=== PATIENT | female | born 1965 | race Caucasian/White ===

== ENCOUNTER 2024-09-07 21:38 | Emergency (ER) | payer BC, OTHER ==
--- NOTE | 2024-09-07 21:54 | RAD REPORT ---
EXAM: CT Ct Stroke Brain Wo Cont HISTORY: STROKE ALERT COMPARISON: None TECHNIQUE: Multiple contiguous axial images were obtained for a CT of the brain without contrast. Sag ittal and coronal reformats were performed. One or more of the following dose reduction techniques were used: Automated exposure control, adjus tment of the mA and kV according to patient size, and iterative reconstruction. Unless otherwise specified, incidental findings do not require dedicated imaging follow-up. FINDINGS: No evidence of hydrocephalus, intracranial hemorrhage, or extra-axial fluid collection. The brain is normal in morphology. The calvarium is intact. The visualized paranasal sinuses and mastoid air cells are essentially clear . IMPRESSION: No evidence of acute intracranial abnormality. THIS REPORT CONTAINS FINDINGS THAT MAY BE CRITICAL TO PATIENT CARE. The findings were verbally commun icated via telephone to Yovani Rodney MD on 09/07/2024 9:52 PM.
[2024-09-07] MEDS ORDERED: TENECTEPLASE 50 MG/10 ML VIAL IV ONE (21:59)
--- NOTE | 2024-09-07 22:29 | EDPHYS ---
Physician Documentation [facility] Name: Princess Mcgovern Age: 59 yrs Sex: Female : 1965 Arrival Date: 09/07/2024 Time: 21:38 Bed 4 Private MD: ED Physician Yovani Rodney HPI: 09/07 21:55 This 59 yrs old Female presents to ER via Unassigned with complaints of S/S of Possible rn Stroke. 21:55 The patient's problem is reported as a facial droop, on left, weakness, in the left rn upper extremity, in the left lower extremity. Onset: The symptoms/episode began/occurred 1 hour(s) ago. The symptoms are alleviated by nothing. The symptoms are aggravated by nothing. Severity of symptoms: At their worst the symptoms were moderate in the emergency department the symptoms are unchanged. The patient has not experienced similar symptoms in the past. Has been reports that she was outside smoking and when she came in noticed she had difficulty walking, legs gave out, could not use left arm, was not understanding his questions and had slurred speech. No previous history of stroke or heart attack. Does not take blood thinners. Active smoker. Does not see physician. No recent surgery or procedure. No recent bleeding that he knows of. States last known normal 1 hour prior to arrival. Historical: - Allergies: 22:09 PENICILLINS; br2 - PMHx: 22:09 None; br2 - PSHx: 22:09 section; br2 - Immunization history:: Adult Immunizations not up to date. - Infectious Disease History:: Denies. - Family history:: not pertinent. - Social history:: Smoking status: Patient reports the use of cigarette tobacco products, smokes two packs cigarettes per day. Patient uses alcohol, occasionally. - Hospitalizations: : No recent hospitalization is reported. ROS: 21:55 Constitutional: Negative for fever, chills, and weight loss, Cardiovascular: Negative rn for chest pain, palpitations, and edema, Respiratory: Negative for shortness of breath, cough, wheezing, and pleuritic chest pain, Abdomen/GI: Negative for abdominal pain, nausea, vomiting, diarrhea, and constipation, MS/Extremity: Negative for injury and deformity, Skin: Negative for injury, rash, and discoloration, Neuro: Positive for weakness on left side and facial weakness Exam: 21:55 Radiologist reports: No acute findings rn 21:55 Constitutional: This is a well developed, well nourished patient who is awake, alert, and in no acute distress. Head/Face: Normocephalic, atraumatic. Eyes: Gaze to right, eyes do not cross midline to the left Cardiovascular: Regular rate and rhythm. No pulse deficits. Respiratory: No increased work of breathing, no retractions or nasal flaring. Abdomen/GI: Soft, non-tender MS/ Extremity: Pulses equal, no cyanosis. Neurovascular intact. Full, normal range of motion. Equal circumference. Neuro: Left lower facial droop with forehead sparing. Left arm weakness with very little effort but still present against gravity. Left leg drift. Sensation intact. Hemineglect on the left side spatially Vital Signs: 21:38 BP 153 / 79; Pulse 85; Resp 28 S; Temp 97.7(TE); Pulse Ox 98% on R/A; Weight 56.25 kg; br2 Height 5 ft. 6 in. ; Pain 0/10; 21:42 BP 153 / 79; Pulse 84; Resp 18; Pulse Ox 98% on R/A; al5 21:50 BP 141 / 74; Pulse 86; Resp 22; Pulse Ox 98% on R/A; al5 21:55 BP 145 / 71; Pulse 86; Resp 17; Pulse Ox 98% on R/A; al5 22:00 BP 138 / 71; Pulse 79; Resp 26; Pulse Ox 97% on R/A; al5 22:01 Weight 56.36 kg; vc1 22:05 BP 140 / 73; Pulse 83; Resp 21; Pulse Ox 98% on R/A; al5 22:10 BP 138 / 68; Pulse 83; Resp 19; Pulse Ox 97% on R/A; al5 22:15 BP 134 / 70; Pulse 86; Resp 26; Pulse Ox 96% on R/A; al5 22:20 BP 148 / 73; Pulse 81; Resp 14; Pulse Ox 97% on R/A; al5 22:25 BP 150 / 79; Pulse 74; Resp 23; Pulse Ox 96% on R/A; al5 22:30 BP 148 / 79; Pulse 83; Resp 16; Pulse Ox 98% on R/A; al5 22:35 BP 137 / 83; Pulse 77; Resp 23; Pulse Ox 95% on R/A; al5 22:40 BP 142 / 79; Pulse 76; Resp 24; Pulse Ox 96% on R/A; al5 22:45 BP 154 / 81; Pulse 76; Resp 24; Pulse Ox 95% on R/A; al5 22:50 BP 145 / 74; Pulse 73; Resp 21; Pulse Ox 96% on R/A; al5 23:00 BP 148 / 77; Pulse 89; Resp 22; Pulse Ox 96% on R/A; al5 23:05 BP 158 / 88; Pulse 84; Resp 24; Pulse Ox 96% on R/A; al5 23:10 BP 154 / 85; Pulse 80; Resp 20; Pulse Ox 96% on R/A; al5 23:15 BP 152 / 83; Pulse 87; Resp 22; Pulse Ox 99% on R/A; al5 23:30 BP 173 / 74; Pulse 83; Resp 16; Pulse Ox 97% on R/A; al5 23:50 BP 164 / 81; Pulse 89; Resp 27; Pulse Ox 98% on R/A; vc1 23:51 Weight 56.36 kg; Height 5 ft. 6 in. ; vc1 23:51 Body Mass Index 20.05 (56.36 kg, 167.64 cm) vc1 21:38 Pain Scale: Adult br2 NIH Stroke Scale Scores: 21:38 NIHSS Score: 10 br2 21:49 NIHSS Score: 7 rn 23:45 NIHSS Score: 11 vc1 MDM: 21:42 Medical Screening Exam initiated rn 21:51 Independent interpretation of the following test(s) in the Emergency Department CT rn Scan: My interpretation is CT head stroke protocol negative for acute bleeding per my interpretation, awaiting on radiology to confirm. ED course: Per Dr. Wallace, no acute findings on CT head. . 21:59 ED course: Had long discussion regarding TNKase with patient and spouse. All questions rn answered, understand risks of bleeding and both agree to receiving TNKase. TNKase ordered. Blood pressure is 141/74. No contraindications found in history or physical.. 22:26 Differential diagnosis: CVA, TIA, metabolic disorder. TNKase (Tenecteplase) Screening: rn Indications: Definite evidence of stroke, ischemic, embolic, or hypertensive: Yes. Treatment will start within 4.5 hours onset of symptoms: Yes. No evidence of intracranial hemorrhage or CT of head and no evidence of peripheral hemorrhage or recent CVA: Yes. Data reviewed: vital signs, nurses notes, lab test result(s), radiologic studies, CT scan, and as a result, I will admit patient. Consideration of Admission/Observation Patient was admitted/placed on observation. Escalation of care including admission/observation considered. Counseling: I had a detailed discussion with the patient and/or guardian regarding the historical points, exam findings, and any diagnostic results supporting the discharge/admit diagnosis, lab results, radiology results, the need for further work-up and treatment in the hospital, the need to transfer to another facility, for higher level of care, [facility] does not immediately have the required specialist. ED course: No ICU beds available at this facility. Told to transfer patient for ICU capacity. Transfer initiated to [facility]. ED course: I personally spent 35 minutes engaged in work directly related to the individual patient's care. This does not include any time spent performing procedures. The patient has been deemed critically ill because of acute ischemic stroke presentation requiring mobilization of CT as well as time spent with patient and family regarding onset and discussion with family and patient regarding TNKase as well as organization of transfer. 23:09 ED course: CTA head and neck performed, awaiting results and will transfer patient. rn 23:16 ED course: CT angio shows LVO, spoke with [facility], they will activate code stroke rn there for intervention, requested [facility]. . 09/07 21:43 Order name: Basic Metabolic Panel; Complete Time: 22:59 rn 09/07 21:43 Order name: CBC with Diff; Complete Time: 22:59 rn 09/07 21:43 Order name: High Sensitivity Troponin; Complete Time: 22:59 rn 09/07 21:43 Order name: Protime (+inr); Complete Time: 22:45 rn 09/07 21:43 Order name: Ptt, Activated; Complete Time: 22:45 rn 09/07 21:43 Order name: CT Stroke Brain w/o Contrast; Complete Time: 22:44 rn 09/07 21:43 Order name: Stroke CXR 1 View; Complete Time: 22:44 rn 09/07 22:46 Order name: CT Head Angio rn 09/07 22:46 Order name: Neck Angio CT rn 09/07 21:43 Order name: EKG; Complete Time: 21:44 rn 09/07 21:43 Order name: Accucheck; Complete Time: 22: rn 09/07 21:43 Order name: Cardiac monitoring; Complete Time: 22: rn 09/07 21:43 Order name: EKG - Nurse/Tech; Complete Time: 22:13 rn 09/07 21:43 Order name: IV Saline Lock; Complete Time: 22: rn 09/07 21:43 Order name: Labs collected and sent; Complete Time: 22: rn 09/07 21:43 Order name: NPO; Complete Time: 22: rn 09/07 21:43 Order name: O2 Per Protocol; Complete Time: : rn 09/07 21:43 Order name: O2 Sat Monitoring; Complete Time: 22: rn 09/07 21:43 Order name: Stroke Swallow Screen; Complete Time: 23:29 rn Administered Medications: 22:07 Drug: TNK FOR STROKE - Tenecteplase IV (Administer 10 ml NS flush BEFORE and vc1 AFTER tenecteplase) 0.25 mg/kg IV at per protocol once; 0.25mg/kg, MAX DOSE 25 mg, IVP over 5 seconds {Co-Signature: br2 (Monica Santana RN).} {Note: 2.8 ml.} Route: IV; Rate: per protocol; Site: right antecubital; 22:08 Follow up: IV Status: Completed infusion; IV Intake: 2.8ml vc1 22:49 Drug: foLIC Acid IVPB 1 mg IVPB once Route: IVPB; Site: right antecubital; vc1 22:52 Follow up: IV Status: Completed infusion; IV Intake: 10ml vc1 23:28 Drug: Aspirin PO Chewable Tablet 324 mg PO once; 81 mg tablets x 4 {Note: crushed and vc1 given in pudding per MD..} Route: PO; 23:37 Follow up: Response: No adverse reaction; No adverse reaction; pt able to swallow vc1 medicine that was mixed in pudding Point of Care Testing: Blood Glucose: 21:52 Blood Glucose: 298 mg/dL; vc1 Ranges: Critical Glucose Levels:Adult <50 mg/dl or >400 mg/dl <40 mg/dl or >180 mg/dl Disposition Summary: 09/07/24 22:28 Transfer Ordered Notes: Transfer Location: [facility] rn Reason: Higher level of care rn Condition: Stable rn Problem: new rn Symptoms: are unchanged rn Accepting Physician: (09/08/24 00:02) vc1 Diagnosis - Cerebral infarction, unspecified rn - Slurred speech rn - Weakness rn - Facial weakness rn Forms: - Medication Reconciliation Form rn - SBAR form journeyman wireman time excluding procedures: 22:26 Critical care time: Bedside Care: 30 minutes, Family Intervention: 5 minutes. Total rn time: 35 minutes NIH Stroke Scale - NIH Stroke Score Date: 09/07/2024 Time: 21:38 Total Score = 10 10. Dysarthria (speech clarity - read or repeat words) - 1(Mild to Moderate) 11. Extinction and Inattention (visual/tactile/auditory/spatial/personal) - 0(No abnormality) 1a. Level of Consciousness (LOC) - 0(Alert) 1b. Level of Consciousness (LOC) (Month \T\ Age) - 0(Both) 1c. LOC Commands (Open \T\ Closes Eyes/Steam Brush Operator) - 0(Both) 2. Best Gaze (Lateral Gaze Paresis) - 0(Normal) 3. Visual Field Loss - 0(No visual loss) 4. Facial Palsy - 2(Partial paralysis) 5a. Left Arm: Motor (10-second hold) - 3(No effort against gravity) 5b. Right Arm: Motor (10-second hold) - 0(No drift) 6a. Left Leg: Motor (5-second hold - always test supine) - 2(Drift, some effort against gravity) 6b. Right Leg: Motor (5-second hold - always test supine) - 0(No drift) 7. Limb Ataxia (finger/nose \T\ heel/simon - test with eyes open) - 1(Present in one limb) 8. Sensory Loss (pinprick arms/legs/face) - 1(Mild to moderate loss) 9. Best Language: Aphasia (description/naming/reading) - 0(No aphasia) Initials: br2 NIH Stroke Scale - NIH Stroke Score Date: 09/07/2024 Time: 21:49 Total Score = 7 10. Dysarthria (speech clarity - read or repeat words) - 1(Mild to Moderate) 11. Extinction and Inattention (visual/tactile/auditory/spatial/personal) - 1(Present) 1a. Level of Consciousness (LOC) - 0(Alert) 1b. Level of Consciousness (LOC) (Month \T\ Age) - 0(Both) 1c. LOC Commands (Open \T\ Closes Eyes/Steam Brush Operator) - 0(Both) 2. Best Gaze (Lateral Gaze Paresis) - 1(Partial gaze palsy) 3. Visual Field Loss - 0(No visual loss) 4. Facial Palsy - 1(Minor Paralysis) 5a. Left Arm: Motor (10-second hold) - 2(Drift, some effort against gravity) 5b. Right Arm: Motor (10-second hold) - 0(No drift) 6a. Left Leg: Motor (5-second hold - always test supine) - 1(Drift) 6b. Right Leg: Motor (5-second hold - always test supine) - 0(No drift) 7. Limb Ataxia (finger/nose \T\ heel/simon - test with eyes open) - 0(Absent) 8. Sensory Loss (pinprick arms/legs/face) - 0(Normal) 9. Best Language: Aphasia (description/naming/reading) - 0(No aphasia) Initials: gomez NIH Stroke Scale - NIH Stroke Score Date: 09/07/2024 Time: 23:45 Total Score = 11 10. Dysarthria (speech clarity - read or repeat words) - 1(Mild to Moderate) 11. Extinction and Inattention (visual/tactile/auditory/spatial/personal) - 0(No abnormality) 1a. Level of Consciousness (LOC) - 0(Alert) 1b. Level of Consciousness (LOC) (Month \T\ Age) - 0(Both) 1c. LOC Commands (Open \T\ Closes Eyes/Steam Brush Operator) - 0(Both) 2. Best Gaze (Lateral Gaze Paresis) - 1(Partial gaze palsy) 3. Visual Field Loss - 0(No visual loss) 4. Facial Palsy - 1(Minor Paralysis) 5a. Left Arm: Motor (10-second hold) - 3(No effort against gravity) 5b. Right Arm: Motor (10-second hold) - 0(No drift) 6a. Left Leg: Motor (5-second hold - always test supine) - 3(No effort against gravity) 6b. Right Leg: Motor (5-second hold - always test supine) - 0(No drift) 7. Limb Ataxia (finger/nose \T\ heel/simon - test with eyes open) - 1(Present in one limb) 8. Sensory Loss (pinprick arms/legs/face) - 1(Mild to moderate loss) 9. Best Language: Aphasia (description/naming/reading) - 0(No aphasia) Initials: vc1 Signatures: Dispatcher [employer] EDMS Yovani Rodney MD MD rn Calcote, Vanessa RN RN vc1 Monica Santana RN RN br2 Monica Santana RN br2 Corrections: (The following items were deleted from the chart) 21:44 21:43 BASIC METABOLIC PANEL+C.LAB.BRZ ordered. EDMS EDMS :44 21:43 CBC+H.LAB.BRZ ordered. EDMS EDMS : 21:43 Troponin High Sensitivity+C.LAB.BRZ ordered. EDMS EDMS : 21:43 PROTIME (+INR)+COAG.LAB.BRZ ordered. EDMS EDMS :44 21:43 PTT, ACTIVATED+COAG.LAB.BRZ ordered. EDMS EDMS 09/08 00:02 09/07 22:28 rn vc1
--- NOTE | 2024-09-07 22:29 | ER ---
Nurse's Notes [facility] Name: Princess Mcgovern Age: 59 yrs Sex: Female : 1965 Arrival Date: 09/07/2024 Time: 21:38 Bed 4 Private MD: Diagnosis: Cerebral infarction, unspecified;Slurred speech;Weakness;Facial weakness Presentation: 09/07 21:38 Chief complaint: Spouse and/or significant other states: PT SPOUSE STATES THEY WERE br2 SITTING ON PORCH AND PT STARTED STRUGGLING TO TAKE OFF JACKET, THEN WAS UNALBE TO WALK. ONSET AT APPROX 2100. ON ARRIVAL TO ER PT HAS LEFT SIDED FACIAL DROOPING, LEFT ARM IS FLACCID AND WEAKNESS TO LEFT LEG. AT BEDSIDE. FINGERSTICK PER EMS 256. Coronavirus screen: Client denies travel out of the [place] in the last 14 days. Ebola Screen: Patient denies exposure to infectious person. Patient denies travel to an Ebola-affected area in the 21 days before illness onset. An acute neurological deficit is present. The charge nurse has been notified. The patient has been moved to a treatment area. The patients blood glucose was checked prior to arriving to the hospital and was found to be hyperglycemic. The charge nurse has been notified. Initial Sepsis Screen: Does the patient meet any 2 criteria? RR > 20 per min. Does the patient have a suspected source of infection? No. Patient's initial sepsis screen is negative. Risk Assessment: Do you want to hurt yourself or someone else? Patient reports no desire to harm self or others. Onset of symptoms was September 07, 2024 at 21:00. 21:38 Method Of Arrival: EMS: [facility] br2 21:38 Acuity: OMA 2 br2 Triage Assessment: 21:38 The onset of the patients symptoms was September 07, 2024 at 21:38. General: Appears br2 uncomfortable, Behavior is calm, cooperative. Pain: Denies pain. Neuro:. Neuro: Speech is slurred, Facial droop on left. 21:38 The onset of the patients symptoms was less than three hours ago. General: Appears in vc1 no apparent distress. uncomfortable, slender, Behavior is calm, cooperative. Pain: Denies pain. EENT: No deficits noted. No signs and/or symptoms were reported regarding the EENT system. Neuro: Reports. 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 Cardiovascular: Heart tones S1 S2 present Capillary refill < 3 seconds Patient's skin is warm and dry. Respiratory: Airway is patent Respiratory effort is even, unlabored, Respiratory pattern is regular, symmetrical, Breath sounds are clear bilaterally. GI: Abdomen is flat, non-distended. : No deficits noted. No signs and/or symptoms were reported regarding the genitourinary system. Derm: Skin is intact, is healthy with good turgor, Skin is dry, Skin is normal, Skin temperature is warm. Musculoskeletal: Reports weakness in left arm and left leg. Stroke Activation: Physician: ED Attending; Name: JAJA; Notified At: 21:38; Arrived At: 21:38 Physician: Mid-Level Provider; Name: ; Notified At: 21:38; Arrived At: Physician: [not used]; Name: ; Notified At: ; Arrived At: Physician: [not used]; Name: ; Notified At: ; Arrived At: Physician: [not used]; Name: ; Notified At: ; Arrived At: Historical: - Allergies: 22:09 PENICILLINS; br2 - PMHx: 22:09 None; br2 - PSHx: 22:09 section; br2 - Immunization history:: Adult Immunizations not up to date. - Infectious Disease History:: Denies. - Family history:: not pertinent. - Social history:: Smoking status: Patient reports the use of cigarette tobacco products, smokes two packs cigarettes per day. Patient uses alcohol, occasionally. - Hospitalizations: : No recent hospitalization is reported. Screenin:38 [facility] ED Fall Risk Assessment (Adult) History of falling in the last 3 months, br2 including since admission No falls in past 3 months (0 pts) Confusion or Disorientation Altered Elimination. 21:38 [facility] ED Fall Risk Assessment (Adult) Intoxicated or Sedated No (0 pts) Impaired vc1 Gait Yes (1 pt) Mobility Assist Device Used No (0 pt) Score/Fall Risk Level 3 or more points = High Risk Oriented to surroundings, Maintained a safe environment, Educated pt \T\ family on fall prevention, incl call for assistance when getting out of bed, Utilized family, sitter, or virtual owner e commerce company as indicated. 21:38 Abuse screen: Denies threats or abuse. Denies injuries from another. Nutritional vc1 screening: No deficits noted. Tuberculosis screening: No symptoms or risk factors identified. VAN Screening: Arm Drift: Flaccid or no effort against gravity. Visual Disturbance: No visual disturbance noted. Aphasia: No aphasia noted. Assessment: 21:38 VAN Scoring: Arm Drift: Flaccid/no antigravity Nan Swallow Protocol Exclusion br2 Criteria:. TNKase (Tenecteplase) Screening:. 23:25 Mobile Swallow Protocol Exclusion Criteria: Exclusion Criteria Result: Proceed Brief vc1 Cognitive Screen What is your name? Normal, Where are you right now? Normal, What year is it? Normal. Oral Mechanism Examination Facial Symmetry: Normal, Motion: Normal, Lip Closure: Normal, Oral Mechanism Result: Normal. 3 oz Water Swallow Challenge: Pt able to drink all water without stopping, coughing, choking or throat clearing: No Result: FAIL MD Notified: Yovani Rodney MD. 23:36 Reassessment: No changes from previously documented assessment. Patient and/or family vc1 updated on plan of care and expected duration. Pain level reassessed. Patient states symptoms have not improved. Vital Signs: 21:38 BP 153 / 79; Pulse 85; Resp 28 S; Temp 97.7(TE); Pulse Ox 98% on R/A; Weight 56.25 kg; br2 Height 5 ft. 6 in. ; Pain 0/10; 21:42 BP 153 / 79; Pulse 84; Resp 18; Pulse Ox 98% on R/A; al5 21:50 BP 141 / 74; Pulse 86; Resp 22; Pulse Ox 98% on R/A; al5 21:55 BP 145 / 71; Pulse 86; Resp 17; Pulse Ox 98% on R/A; al5 22:00 BP 138 / 71; Pulse 79; Resp 26; Pulse Ox 97% on R/A; al5 22:01 Weight 56.36 kg; vc1 22:05 BP 140 / 73; Pulse 83; Resp 21; Pulse Ox 98% on R/A; al5 22:10 BP 138 / 68; Pulse 83; Resp 19; Pulse Ox 97% on R/A; al5 22:15 BP 134 / 70; Pulse 86; Resp 26; Pulse Ox 96% on R/A; al5 22:20 BP 148 / 73; Pulse 81; Resp 14; Pulse Ox 97% on R/A; al5 22:25 BP 150 / 79; Pulse 74; Resp 23; Pulse Ox 96% on R/A; al5 22:30 BP 148 / 79; Pulse 83; Resp 16; Pulse Ox 98% on R/A; al5 22:35 BP 137 / 83; Pulse 77; Resp 23; Pulse Ox 95% on R/A; al5 22:40 BP 142 / 79; Pulse 76; Resp 24; Pulse Ox 96% on R/A; al5 22:45 BP 154 / 81; Pulse 76; Resp 24; Pulse Ox 95% on R/A; al5 22:50 BP 145 / 74; Pulse 73; Resp 21; Pulse Ox 96% on R/A; al5 23:00 BP 148 / 77; Pulse 89; Resp 22; Pulse Ox 96% on R/A; al5 23:05 BP 158 / 88; Pulse 84; Resp 24; Pulse Ox 96% on R/A; al5 23:10 BP 154 / 85; Pulse 80; Resp 20; Pulse Ox 96% on R/A; al5 23:15 BP 152 / 83; Pulse 87; Resp 22; Pulse Ox 99% on R/A; al5 23:30 BP 173 / 74; Pulse 83; Resp 16; Pulse Ox 97% on R/A; al5 23:50 BP 164 / 81; Pulse 89; Resp 27; Pulse Ox 98% on R/A; vc1 23:51 Weight 56.36 kg; Height 5 ft. 6 in. ; vc1 23:51 Body Mass Index 20.05 (56.36 kg, 167.64 cm) vc1 21:38 Pain Scale: Adult br2 NIH Stroke Scale Scores: 21:38 NIHSS Score: 10 br2 21:49 NIHSS Score: 7 rn 23:45 NIHSS Score: 11 vc1 ED Course: 21:38 Arm band placed on left wrist. br2 21:38 Patient has correct armband on for positive identification. Placed in gown. Bed in low vc1 position. Call light in reach. Adult w/ patient. aeronautical products sales engineer on. Pulse ox on. NIBP on. 21:38 Provided Education on: NPO. vc1 21:40 Patient arrived in ED. jj6 21:42 Yovani Rodney MD is Attending Physician. rn 21:45 CT Stroke Brain w/o Contrast In Process Unspecified. EDMS 21:50 Inserted saline lock: 22 gauge in right antecubital area, using aseptic technique. vc1 Blood collected. Flushed with 10 mL NS. 21:55 Inserted saline lock: 18 gauge in left antecubital area, using aseptic technique. vc1 22:09 Triage completed. br2 22:28 Stroke CXR 1 View In Process Unspecified. EDMS 22:33 initiated transfer to [facility] spoke with Mirian. vk 23:17 CT Head Angio In Process Unspecified. EDMS 23:[address] In Process Unspecified. EDMS 23:17 Shona Mcnair, BRODERICK is Primary Nurse. al5 23:38 No provider procedures requiring assistance completed. Patient transferred, IV remains vc1 in place. 09/08 01:37 patient was accepted to [facility] ER\T\ 2319 to [facility] per transfer center, [place] Patient was flown life flight to facility called to initiate at 2320 spoke with Abran. Administered Medications: 09/07 22:07 Drug: TNK FOR STROKE - Tenecteplase IV (Administer 10 ml NS flush BEFORE and vc1 AFTER tenecteplase) 0.25 mg/kg IV at per protocol once; 0.25mg/kg, MAX DOSE 25 mg, IVP over 5 seconds {Co-Signature: br2 (Monica Santana RN).} {Note: 2.8 ml.} Route: IV; Rate: per protocol; Site: right antecubital; 22:08 Follow up: IV Status: Completed infusion; IV Intake: 2.8ml vc1 22:49 Drug: foLIC Acid IVPB 1 mg IVPB once Route: IVPB; Site: right antecubital; vc1 22:52 Follow up: IV Status: Completed infusion; IV Intake: 10ml vc1 23:28 Drug: Aspirin PO Chewable Tablet 324 mg PO once; 81 mg tablets x 4 {Note: crushed and vc1 given in pudding per ..} Route: PO; 23:37 Follow up: Response: No adverse reaction; No adverse reaction; pt able to swallow vc1 medicine that was mixed in pudding Medication: 22:40 VIS not applicable for this client. vc1 Point of Care Testing: Blood Glucose: 21:52 Blood Glucose: 298 mg/dL; vc1 Ranges: Intake: 22:08 IV: 3ml; Total: 3ml. vc1 22:52 IV: 10ml; Total: 13ml. vc1 Outcome: 22:28 ER care complete, transfer ordered by MD. dyer 09/08 00:01 Transferred by helicopter [facility] completed. vc1 X-rays sent w/ patient. Condition: stable Instructed on the need for transfer, medication usage, 00:02 Patient left the ED. vc1 NIH Stroke Scale - NIH Stroke Score Date: 09/07/2024 Time: 21:38 Total Score = 10 10. Dysarthria (speech clarity - read or repeat words) - 1(Mild to Moderate) 11. Extinction and Inattention (visual/tactile/auditory/spatial/personal) - 0(No abnormality) 1a. Level of Consciousness (LOC) - 0(Alert) 1b. Level of Consciousness (LOC) (Month \T\ Age) - 0(Both) 1c. LOC Commands (Open \T\ Closes Eyes/Light Out Examiner) - 0(Both) 2. Best Gaze (Lateral Gaze Paresis) - 0(Normal) 3. Visual Field Loss - 0(No visual loss) 4. Facial Palsy - 2(Partial paralysis) 5a. Left Arm: Motor (10-second hold) - 3(No effort against gravity) 5b. Right Arm: Motor (10-second hold) - 0(No drift) 6a. Left Leg: Motor (5-second hold - always test supine) - 2(Drift, some effort against gravity) 6b. Right Leg: Motor (5-second hold - always test supine) - 0(No drift) 7. Limb Ataxia (finger/nose \T\ heel/simon - test with eyes open) - 1(Present in one limb) 8. Sensory Loss (pinprick arms/legs/face) - 1(Mild to moderate loss) 9. Best Language: Aphasia (description/naming/reading) - 0(No aphasia) Initials: br2 NIH Stroke Scale - NIH Stroke Score Date: 09/07/2024 Time: 21:49 Total Score = 7 10. Dysarthria (speech clarity - read or repeat words) - 1(Mild to Moderate) 11. Extinction and Inattention (visual/tactile/auditory/spatial/personal) - 1(Present) 1a. Level of Consciousness (LOC) - 0(Alert) 1b. Level of Consciousness (LOC) (Month \T\ Age) - 0(Both) 1c. LOC Commands (Open \T\ Closes Eyes/Light Out Examiner) - 0(Both) 2. Best Gaze (Lateral Gaze Paresis) - 1(Partial gaze palsy) 3. Visual Field Loss - 0(No visual loss) 4. Facial Palsy - 1(Minor Paralysis) 5a. Left Arm: Motor (10-second hold) - 2(Drift, some effort against gravity) 5b. Right Arm: Motor (10-second hold) - 0(No drift) 6a. Left Leg: Motor (5-second hold - always test supine) - 1(Drift) 6b. Right Leg: Motor (5-second hold - always test supine) - 0(No drift) 7. Limb Ataxia (finger/nose \T\ heel/simon - test with eyes open) - 0(Absent) 8. Sensory Loss (pinprick arms/legs/face) - 0(Normal) 9. Best Language: Aphasia (description/naming/reading) - 0(No aphasia) Initials: rn NIH Stroke Scale - NIH Stroke Score Date: 09/07/2024 Time: 23:45 Total Score = 11 10. Dysarthria (speech clarity - read or repeat words) - 1(Mild to Moderate) 11. Extinction and Inattention (visual/tactile/auditory/spatial/personal) - 0(No abnormality) 1a. Level of Consciousness (LOC) - 0(Alert) 1b. Level of Consciousness (LOC) (Month \T\ Age) - 0(Both) 1c. LOC Commands (Open \T\ Closes Eyes/Light Out Examiner) - 0(Both) 2. Best Gaze (Lateral Gaze Paresis) - 1(Partial gaze palsy) 3. Visual Field Loss - 0(No visual loss) 4. Facial Palsy - 1(Minor Paralysis) 5a. Left Arm: Motor (10-second hold) - 3(No effort against gravity) 5b. Right Arm: Motor (10-second hold) - 0(No drift) 6a. Left Leg: Motor (5-second hold - always test supine) - 3(No effort against gravity) 6b. Right Leg: Motor (5-second hold - always test supine) - 0(No drift) 7. Limb Ataxia (finger/nose \T\ heel/simon - test with eyes open) - 1(Present in one limb) 8. Sensory Loss (pinprick arms/legs/face) - 1(Mild to moderate loss) 9. Best Language: Aphasia (description/naming/reading) - 0(No aphasia) Initials: vc1 Signatures: Dispatcher [employer] EDMS Yovani Rodney MD MD rn Jeffries, Jennifer jj6 Adriana Richey RN RN vc1 Natacha Ramesh Amanda, RN RN al5 Monica Santana RN RN br2 Monica Santana RN br2 Corrections: (The following items were deleted from the chart) 09/07 23:47 21:38 NIHSS Score: 10 vc1 vc1 23:47 21:38 NIHSS Score: 11 vc1 vc1
--- NOTE | 2024-09-07 22:37 | RAD REPORT ---
EXAMINATION: ONE VIEW CHEST XR CLINICAL INDICATION: Female, 59 years old.,code stroke TECHNIQUE: Frontal chest projection is submitted. Examination is limited by patient positioning and t echnique. COMPARISON: 11/11/2012 FINDINGS: The lungs are well inflated and clear. Calcified peripheral left lower lung granuloma, stable. No pne umothorax or sizable effusion. The heart is normal in size. Mediastinal contours are unremarkable. IMPRESSION: No acute intrathoracic abnormalities.
[2024-09-07 22:44] LABS: Protime INR 1.05
[2024-09-07 22:45] LABS: PTT, Activated Partial Thromb 29.8 SECONDS (24.3-36.9)
[2024-09-07] MEDS ORDERED: FOLIC ACID 5 MG/ML VIAL ONE (22:45)
[2024-09-07 22:49] LABS: Absolute Basophils 0.1 K/uL (0-0.5); Absolute Eosinophils 0.2 K/uL (0-0.5); Absolute Lymphocytes (CBC) 2.9 K/uL (0.7-4.9); Absolute Monocytes 0.7 K/uL (0.1-1.3); Basophils % 0.9 % (0-1.3); Eosinophils % 2.3 % (0-4.4); Hematocrit 43.4 % (36.0-45.0); Hemoglobin 15.2 g/dL (12.0-15.0); Lymphocytes % 32.8 % (15.3-44.8); MCH 32.3 pg (27.0-35.0); MCV 92.5 fL (80-100); MPV 8.2 fL (7.6-11.3); Nucleated Red Blood Cells % 0.2 % (0-0); Platelets 245 thou/uL (152-406); RBC Red Blood Cell Count 4.69 M/uL (3.86-4.86); Red Cell Distribution Width 12.9 % (12.1-15.2)
[2024-09-07 22:58] LABS: Troponin High Sensitivity 3.2 pg/mL (<58.9)
[2024-09-07] MEDS ORDERED: ASPIRIN 81 MG CHEWABLE TABLET ONE (23:22)
--- NOTE | 2024-09-08 00:19 | RAD REPORT ---
ADDENDUM #1 THIS REPORT CONTAINS FINDINGS THAT MAY BE CRITICAL TO PATIENT CARE: The findings were verbally discus sed via telephone conference with Dr. Yovani Rodney MD by Dr. Kleber Herzog on 09/07/2024 11:58 PM [facility] .The results were acknowledged and understood. Electronically signed by: Kleber Herzog MD 09/08/2024 12:08 AM [facility] RP 8 End of Addendum EXAM: CT Angiography Head With Intravenous Contrast CLINICAL HISTORY: The patient is 59 years old and is Female; STROKE ALERT TECHNIQUE: Axial computed tomographic angiography images of the head with intravenous contrast. S agittal and coronal reformatted images were created and reviewed. This CT exam was performed using one or more of the following dose reduction techniques: automated exposure control, adjustmen t of the mA and/or kV according to patient size, and/or use of iterative reconstruction technique. MIP reconstructed images were created and reviewed. COMPARISON: No relevant prior studies available. FINDINGS: Right internal carotid artery: No acute findings. Intracranial segment is patent with no signif icant stenosis. No aneurysm. Right anterior cerebral artery: Unremarkable. No occlusion or significant stenosis. No aneury sm. Right middle cerebral artery: Severe stenosis or occlusion of the proximal right M1 segment with normal opacification/reconstitution of the distal right M1 and M2 segments. No aneurysm. Right posterior cerebral artery: Unremarkable. No occlusion or significant stenosis. No aneur ysm. Right vertebral artery: Unremarkable as visualized. Left internal carotid artery: No acute findings. Intracranial segment is patent with no signifi cant stenosis. No aneurysm. Left anterior cerebral artery: Unremarkable. No occlusion or significant stenosis. No aneurys m. Left middle cerebral artery: Unremarkable. No occlusion or significant stenosis. No aneurysm. Left posterior cerebral artery: Unremarkable. No occlusion or significant stenosis. No aneury sm. Left vertebral artery: Unremarkable as visualized. Basilar artery: Unremarkable. No occlusion or significant stenosis. No aneurysm. * A single impression for all exams can be found at the end of this report EXAM: CT Angiography Neck With Intravenous Contrast CLINICAL HISTORY: The patient is 59 years old and is Female; STROKE ALERT TECHNIQUE: Routine carotid CT angiography protocol was performed with intravenous contrast. NASCE T criteria using the distal ICAs for comparison were used for evaluation of stenoses. Sagittal and coronal reformatted images were created and reviewed. This CT exam was performed using one or m ore of the following dose reduction techniques: automated exposure control, adjustment of the mA and/or kV according to patient size, and/or use of iterative reconstruction technique. MIP reconstr ucted images were created and reviewed. COMPARISON: None. FINDINGS: VASCULATURE: Right common carotid artery: Unremarkable. No occlusion or significant stenosis. No dissectio n. Right internal carotid artery: Unremarkable. Extracranial segment is patent with no occlusion o r significant stenosis. No dissection. Right external carotid artery: Unremarkable. No occlusion. Right vertebral artery: Unremarkable. No occlusion or significant stenosis. No dissection. Left common carotid artery: Unremarkable. No occlusion or significant stenosis. No dissection . Left internal carotid artery: Unremarkable. Extracranial segment is patent with no occlusion or significant stenosis. No dissection. Left external carotid artery: Unremarkable. No occlusion. Left vertebral artery: Unremarkable. No occlusion or significant stenosis. No dissection. NECK: Bones/joints: Unremarkable. No acute fracture. Soft tissues: Unremarkable. Thyroid: Heterogeneous thyroid. Consider nonemergent thyroid ultrasound for further evaluation if clinically indicated. Lung apices: Clear. CAROTID STENOSIS REFERENCE USING NASCET CRITERIA: % ICA stenosis = (1 - narrowest ICA diameter/diameter of distal cervical ICA) x 100. Mild - <50% stenosis. Moderate - 50-69% stenosis. Severe - 70-94% stenosis. Near occlusion - 95-99% stenosis. Occluded - 100% stenosis. * A single impression for all exams can be found at the end of this report IMPRESSION: CT Angiography Head With Intravenous Contrast: Severe stenosis or occlusion of the proximal right M1 segment (MCA) with normal opacification/recon stitution of the distal right M1 and M2 segments. CT Angiography Neck With Intravenous Contrast: No significant stenosis. No dissection or occlusion. Electronically signed by: Kleber Herzog MD 09/07/2024 11:49 PM [facility] 8 Due to temporary technical issues with the PACS/[employer] reporting system, reports are being luisito d by the in-house radiologist without review as a courtesy to ensure prompt reporting the interpreting radiologist is fully responsible for the content of the report. Transcribed Date/Time: 09/08/2024 12:19 AM
--- NOTE | 2024-09-08 00:19 | RAD REPORT ---
ADDENDUM #1 THIS REPORT CONTAINS FINDINGS THAT MAY BE CRITICAL TO PATIENT CARE: The findings were verbally discus sed via telephone conference with Dr. Yovani Rodney MD by Dr. Kleber Herzog on 09/07/2024 11:58 PM [facility] .The results were acknowledged and understood. Electronically signed by: Kleber Herzog MD 09/08/2024 12:08 AM [facility] RP 8 End of Addendum EXAM: CT Angiography Head With Intravenous Contrast CLINICAL HISTORY: The patient is 59 years old and is Female; STROKE ALERT TECHNIQUE: Axial computed tomographic angiography images of the head with intravenous contrast. S agittal and coronal reformatted images were created and reviewed. This CT exam was performed using one or more of the following dose reduction techniques: automated exposure control, adjustmen t of the mA and/or kV according to patient size, and/or use of iterative reconstruction technique. MIP reconstructed images were created and reviewed. COMPARISON: No relevant prior studies available. FINDINGS: Right internal carotid artery: No acute findings. Intracranial segment is patent with no signif icant stenosis. No aneurysm. Right anterior cerebral artery: Unremarkable. No occlusion or significant stenosis. No aneury sm. Right middle cerebral artery: Severe stenosis or occlusion of the proximal right M1 segment with normal opacification/reconstitution of the distal right M1 and M2 segments. No aneurysm. Right posterior cerebral artery: Unremarkable. No occlusion or significant stenosis. No aneur ysm. Right vertebral artery: Unremarkable as visualized. Left internal carotid artery: No acute findings. Intracranial segment is patent with no signifi cant stenosis. No aneurysm. Left anterior cerebral artery: Unremarkable. No occlusion or significant stenosis. No aneurys m. Left middle cerebral artery: Unremarkable. No occlusion or significant stenosis. No aneurysm. Left posterior cerebral artery: Unremarkable. No occlusion or significant stenosis. No aneury sm. Left vertebral artery: Unremarkable as visualized. Basilar artery: Unremarkable. No occlusion or significant stenosis. No aneurysm. * A single impression for all exams can be found at the end of this report EXAM: CT Angiography Neck With Intravenous Contrast CLINICAL HISTORY: The patient is 59 years old and is Female; STROKE ALERT TECHNIQUE: Routine carotid CT angiography protocol was performed with intravenous contrast. NASCE T criteria using the distal ICAs for comparison were used for evaluation of stenoses. Sagittal and coronal reformatted images were created and reviewed. This CT exam was performed using one or m ore of the following dose reduction techniques: automated exposure control, adjustment of the mA and/or kV according to patient size, and/or use of iterative reconstruction technique. MIP reconstr ucted images were created and reviewed. COMPARISON: None. FINDINGS: VASCULATURE: Right common carotid artery: Unremarkable. No occlusion or significant stenosis. No dissectio n. Right internal carotid artery: Unremarkable. Extracranial segment is patent with no occlusion o r significant stenosis. No dissection. Right external carotid artery: Unremarkable. No occlusion. Right vertebral artery: Unremarkable. No occlusion or significant stenosis. No dissection. Left common carotid artery: Unremarkable. No occlusion or significant stenosis. No dissection . Left internal carotid artery: Unremarkable. Extracranial segment is patent with no occlusion or significant stenosis. No dissection. Left external carotid artery: Unremarkable. No occlusion. Left vertebral artery: Unremarkable. No occlusion or significant stenosis. No dissection. NECK: Bones/joints: Unremarkable. No acute fracture. Soft tissues: Unremarkable. Thyroid: Heterogeneous thyroid. Consider nonemergent thyroid ultrasound for further evaluation if clinically indicated. Lung apices: Clear. CAROTID STENOSIS REFERENCE USING NASCET CRITERIA: % ICA stenosis = (1 - narrowest ICA diameter/diameter of distal cervical ICA) x 100. Mild - <50% stenosis. Moderate - 50-69% stenosis. Severe - 70-94% stenosis. Near occlusion - 95-99% stenosis. Occluded - 100% stenosis. * A single impression for all exams can be found at the end of this report IMPRESSION: CT Angiography Head With Intravenous Contrast: Severe stenosis or occlusion of the proximal right M1 segment (MCA) with normal opacification/recon stitution of the distal right M1 and M2 segments. CT Angiography Neck With Intravenous Contrast: No significant stenosis. No dissection or occlusion. Electronically signed by: Kleber Herzog MD 09/07/2024 11:49 PM [facility] 8 Due to temporary technical issues with the PACS/[employer] reporting system, reports are being luisito d by the in-house radiologist without review as a courtesy to ensure prompt reporting the interpreting radiologist is fully responsible for the content of the report. Transcribed Date/Time: 09/08/2024 12:19 AM
[2024-09-08 03:47] VITALS: TEMP 97.7
[2024-09-08 04:10] VITALS: BP 164/81; O2SAT 98
== END 2024-09-08 00:02 | disposition short-term general hospital (02) ==
LOC: ER 21:38
DX: I63.9 Cerebral infarction, unspecified (principal); R47.81 Slurred speech; R53.1 Weakness; R29.710 NIHSS score 10; F17.210 Nicotine dependence, cigarettes, uncomplicated
CPT/HCPCS: 92977; 85025; 80048; 36415; 85610; 82947; 85730; 84484; 70496; 70498; 70450; 71045; 96375; 96374; 99285; Q9967; J3101